=== PATIENT | female | born 2000 | race Caucasian/White ===

== ENCOUNTER 2021-03-18 17:41 | Emergency (ER) | payer OTHER ==
[~2021-03-18] VITALS: Ht 162.6 cm; Wt 65.0 kg
[2021-03-18 18:07] VITALS: TEMP 98.9
[2021-03-18 18:37] LABS: STREP SCREEN NEGATIVE
[2021-03-18 19:33] VITALS: BP 108/71; PULSE 80
== END 2021-03-18 19:30 | disposition home or self-care (01) ==
LOC: COL.ER 17:41 → MEDICAL 23:00
PROVIDERS: Family Medicine
DX: J03.90 Acute tonsillitis, unspecified (principal); F17.210 Nicotine dependence, cigarettes, uncomplicated; Z20.822 Contact with and (suspected) exposure to COVID-19